=== PATIENT | female | born 1975 | race Hispanic/Latino ===

== ENCOUNTER → 2023-10-15 15:38 | Outpatient (CLI) | payer OTHER, MEDICAID, SELFPAY ==
--- NOTE | 2023-10-15 16:12 | DI.MRI.S_ITS ---
PROCEDURE: MR ANKLE RT WO CON INDICATIONS: Calfific tendonitis TECHNIQUE: Noncontrast sagittal T1 spin echo and T2 fast spin echo with fat saturation, axial proton density fast spin echo and T2 fast spin echo with fat saturation, coronal T1 spin echo and T2 fast spin echo with fat saturation through the ankle/hindfoot. COMPARISON: None. FINDINGS: Image quality: Excellent. Tendons: The flexor, peroneal, extensor tendons are unremarkable. There is marked tendinosis of the distal Achilles tendon with low-grade interstitial tear at the calcaneal insertion. Mild retrocalcaneal bursitis. Ligaments: Thickening of the anterior tibiofibular ligament, representing in prior sprain. The posterior tibiofibular ligament is intact. The anterior and the posterior talofibular ligament is intact. The calcaneal fibular ligament is intact. The deep portion of the deltoid ligament is unremarkable. Sinus tarsi: Unremarkable. Plantar fascia: No thickening of the central cord. There are 2 cystic lesion about the distal insertion of the plantar fascia, with the larger 1 measuring 3.0 cm, likely representing ganglion cyst. Muscles: Unremarkable Bones: No marrow edema. No acute fracture. Miscellaneous: A small tibiotalar effusion and small posterior subtalar effusion. Small amount of fluid within the posterior subtalar recess. IMPRESSION: 1. Marked tendinosis of the distal Achilles tendon with low grade interstitial tear at the calcaneal insertion. 2. Two ganglion cysts about the distal insertion of the plantar fascia. Dictated by: Elke Riddle M.D. on 10/16/2023 at 19:21 Approved by: Elke Riddle M.D. on 10/16/2023 at 19:40
== END ==
LOC: MRI 15:41
PROVIDERS: PCP Family Medicine; Referring Provider Podiatrist Foot & Ankle Surgery; Visit Provider Podiatrist Foot & Ankle Surgery
DX: S86.011A Strain of right Achilles tendon, initial encounter (principal); M65.261 Calcific tendinitis, right lower leg; M67.471 Ganglion, right ankle and foot
CPT/HCPCS: 73721

== ENCOUNTER 2023-11-19 09:37 | Day surgery (SDC) | payer OTHER, MEDICAID, SELFPAY ==
[2023-11-19] VITALS (7 sets, daily range): BP systolic 109–169; BP diastolic 68–97; PULSE 72–97; RESP 16–18; TEMP 36.7–36.9; O2SAT 94–100; BMI 25.2
--- NOTE | 2023-11-19 06:39 | PM.PREOP ---
Pre-operative Note Interval Note History & Physical reviewed/Exam performed by Physician: Yes Changes to H&P: Yes H&P completed within 30 days and has changed as indicated here:: Surgical plan may also include right flexor hallucis longus tendon transfer.
[2023-11-19] MEDS: ACETAMINOPHEN 325 MG TABLET 975 MG PO (10:56)
[2023-11-19] MEDS: LACTATED RINGERS 1,000 ML 100 ML IV (10:56)
[2023-11-19] MEDS: CLINDAMYCIN 900 MG/50 ML PIGGYBACK 50 MG IV (12:10)
--- NOTE | 2023-11-19 12:49 | SUR.OPER ---
Prone on padded OR bed, head in foam head support, gel chest rolls, gel pad under knees, pillow under lower legs, toes free of pressure, arms secured on padded arm boards at <90 degrees abduction. Safety belt at thigh.
[2023-11-19] MEDS: LIDOCAINE 1% 20 ML INJ (12:59)
[2023-11-19] MEDS: LACTATED RINGERS 1,000 ML 42 ML IV (13:36)
--- NOTE | 2023-11-19 14:14 | SUR.PREOP ---
Time out 1156 Block start time 1201 . Monitoring initiated and maintained throughout procedure. Oxygen and medications given by anesthesiologist . Patient remained stable throughout procedure, no adverse reactions noted. Block end time 1205.
[2023-11-19] MEDS: BENZOCAINE/MENTHOL 1 LOZ PKT 1 EACH PO (16:32)
--- NOTE | 2023-11-19 16:37 | SUR.PHASEII ---
Pt up to WC, steady transfer. DC home with daughter and crutches.
--- NOTE | 2023-11-20 07:08 | P.OP_ITS ---
Operative Date/Time/Diagnoses Date of procedure: 11/19/23 Pre-op diagnosis: 1. 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 2. Right Foot Osteophyte 3. Right leg muscle contracture Post-op diagnosis: same Procedure & Clinicians Procedure: 1. Right Achilles Tendon Secondary Repair with Allograft 2. Right Foot Calcaneal Ostectomy 3. Right Wendy Procedure Same procedure as scheduled: Yes Indications: 1. Marked?tendinosis?of?the?distal?Achilles?tendon?with?low?grade?interstitial?tear ?at?the?calcaneal?insertion 2. Painful ambulation Surgeon: Maxwell Mckeon Click Yes if Unassisted: Yes Anesthesia Type: General and Peripheral nerve block Operative Notes Findings: 1. Significant thickening of Achilles tendon with calcium deposits Closure Type: primary Prosthetic devices, grafts, tissues, transplants, or devices: AmnioCord and AmnioEffect Arthrex Achilles SpeedBridge Estimated Blood Loss (mL): 15 Tourniquet time (min): 90 Procedure in detail: Patient was identified and brought into operating room via gurney and transferred onto operating table. Regional block was performed in pre-op holding area. General anesthesia was administered in operating room. Patient was in prone position through out duration of surgery. A thigh tourniquet was applied over padded surface, which was set to 275 mmHg for 90 minutes. After marking was identified, right lower extremity was prepped and draped in usual sterile fashion followed by official timeout with surgical team all in agreement. Attention was directed to right posterior heel where bony prominence was identified. A 5 cm linear incision was made at midline using #15 scalpel, and dissection was carried out from skin down to tendon in layers. Severe thickening with calcium deposits noted to the distal Achilles tendon and insertion, which was sharply detached. A sagittal saw was used to remove diseased and prominent bone with verification on fluoroscopy. Inflamed bursae, degenerated tendon and calcium deposits were sharply excised using #15 scalpel and rongeur. Following manufacture instructions, four holes were drilled and tapped, then four suture anchors were inserted, which were passed through Achilles tendon to create a crisscross double-row pattern under appropriate tension for reattachment of Achilles tendon. In addition, a ripstop stitch was created using available firewire sutures. Repair of Achilles tendon was carried out using 0 vicryl, and it was augmented using AmnioCord. Surgical site was irrigated using copious saline, followed by closure in layers with 3-0 and 4-0 vicryls and 3-0 and 4-0 nylons as well as implantation of AmnioEffect. Attention was then directed to right posterior leg. A 2.5 cm linear incision as carried out using #15 scalpel at medial to midline of surgical zone 3. Sharp and blunt dissection was used down to the level of tendon, and care was taken to protect neurovascular structures. A transverse recession of tendon was made using # 15 scalpel, and increased dorsiflexion of ankle was noted. Surgical site was irrigated using copious saline, then it was closed from deep to skin using 4-0 vicryl and 3-0 nylon. Procedure sites were washed and dried. All counts were correct. Betadine soaked Adaptic and Jumpstart were applied to proximal and distal incisions respectively, followed by sterile dressing using gauze, abdominal pad, Kerlix, and cast padding. Posterior splint was molded using 5 inch OrthoGlass and secured with elastic bandages. Patient tolerated procedures without complication and was transferred to PACU with all vital signs stable. Post-operative Condition: stable Disposition: same day surgery Plan for aftercare: NWB to surgical limb. Take medications as directed. Keep dressing clean, dry, and intact. Elevate surgical limb on 2+ pillows. Ice behind knee 15 min/hour when wake. RTC as sceduled.
== END 2023-11-19 16:37 | disposition home or self-care (01) ==
PROVIDERS: PCP Family Medicine; Referring Provider Podiatrist Foot & Ankle Surgery; Visit Provider Podiatrist Foot & Ankle Surgery
PROC: (CPT 27650; principal; 2023-11-19 11:15)
PROC: (CPT 27654; 2023-11-19 11:15)
DX: M65.271 Calcific tendinitis, right ankle and foot (principal); M62.461 Contracture of muscle, right lower leg; M25.774 Osteophyte, right foot; G89.18 Other acute postprocedural pain
CPT/HCPCS: 27654; 28118; 27687; 64450; C1776; J1100; J1885; J2250; J2405; J2704; J3010